=== PATIENT | female | born 1970 | race Caucasian/White ===

== ENCOUNTER → 2021-02-13 | Day surgery (SDC) | payer OTHER ==
[~2021-02-13] VITALS: Ht 162.6 cm; Wt 96.8 kg
[~2021-02-13] MED LIST: ALPHAGAN 020 DROPS/M OU; AMARYL4 MG PO; DORZOLAMIDE 2%10 ML OU; DRISDOL50000 UNIT PO; EFFEXOR-XR 75 M75 MG PO; FARXIGA10 MG PO; LANTUS100 UNIT/1 SC; LEVOTHYROXINE50 MC1 PO; LIPITOR 10MG TA10 MG PO; METFORMIN HCL1000 M1 PO; NEURONTIN400 MG PO; VIT B-12 PO
== END | disposition home or self-care (01) ==
LOC: FAS 07:04
DX: Z12.11 Encounter for screening for malignant neoplasm of colon (principal); Z88.0 Allergy status to penicillin; Z88.1 Allergy status to other antibiotic agents; Z88.5 Allergy status to narcotic agent; Z90.49 Acquired absence of other specified parts of digestive tract; E53.8 Deficiency of other specified B group vitamins; I10 Essential (primary) hypertension; E78.00 Pure hypercholesterolemia, unspecified; E03.9 Hypothyroidism, unspecified; G43.909 Migraine, unspecified, not intractable, without status migrainosus; E66.9 Obesity, unspecified; E11.42 Type 2 diabetes mellitus with diabetic polyneuropathy; Z79.4 Long term (current) use of insulin; Z79.84 Long term (current) use of oral hypoglycemic drugs; E11.3519 Type 2 diabetes mellitus with proliferative diabetic retinopathy with macular edema, unspecified eye; Z98.51 Tubal ligation status; Z68.37 Body mass index [BMI] 37.0-37.9, adult; I25.2 Old myocardial infarction; Z87.19 Personal history of other diseases of the digestive system; Z20.822 Contact with and (suspected) exposure to COVID-19
CPT/HCPCS: 84703; J2704; J7120